=== PATIENT | male | born 1990 | race Caucasian/White ===

== ENCOUNTER 2017-08-12 12:50 | Day surgery (SDC) | payer OTHER ==
[2017-08-12] MEDS ORDERED: OXYMETAZOLINE 30 ML NASAL SPRAY ONE (13:31)
[2017-08-12] MEDS ORDERED: BACITRACIN ZINC 14.2 GM OINTTUBE TP ONE (13:31)
[2017-08-12] MEDS ORDERED: LIDOCAINE 1% 2 ML INJ ID PRN (13:54)
[2017-08-12] MEDS ORDERED: LR 1,000 ML IV ONE (13:54)
[2017-08-12] MEDS ORDERED: OXYMETAZOLINE 30 ML NASAL SPRAY EACHNARE ONE (14:15)
--- NOTE | 2017-08-12 14:24 | PDANEPAE ---
ANE Past Medical History - Cardiovascular History Hx Hypertension: No Hx Arrhythmias: No Hx Chest Pain: No Hx Coronary Artery / Peripheral Vascular Disease: No Hx CHF / Valvular Disease: No Hx Palpitations: No - Pulmonary History Hx COPD: No Hx Asthma/Reactive Airway Disease: No Hx Recent Upper Respiratory Infection: No Hx Oxygen in Use at Home: No Hx Sleep Apnea: No Sleep Apnea Screening Result - Last Documented: Negative - Neurologic History Hx Cerebrovascular Accident: No Hx Seizures: No Hx Dementia: No - Endocrine History Hx Diabetes: No Obesity: no - Renal History Hx Renal Disorders: No - Liver History Hx Hepatic Disorders: No - Neurological & Psychiatric Hx Hx Neurological and Psychiatric Disorders: No - Cancer History Hx Cancer: No - Congenital Disorder History Hx Congenital Disorders: No - GI History Hx Gastrointestinal Disorders: No - Other Health History Other Health History: none - Chronic Pain History Chronic Pain: No - Surgical History Prior Surgeries: na ANE Review of Systems Review of Systems: - Exercise capacity METS (RN): 4 METS ANE Patient History - Allergies Allergies/Adverse Reactions: No Known Allergies Allergy (Verified 08/05/17 11:42) - Home Medications Home medications: home medication list seen and reviewed Home Medications: NK [No Known Home Meds] 12/02/15 [Last Taken Unknown] - NPO status NPO Since - Liquids (Date): 08/12/17 NPO Since - Liquids (Time): 11:00 NPO Since - Solids (Date): 08/11/17 NPO Since - Solids (Time): 21:00 - Anes Hx Anes Hx: no prior problems - Smoking Hx Smoking Status: Never smoked - Family Anes Hx Family Hx Anesthesia Complications: none ANE Labs/Vital Signs - Vital Signs Blood Pressure: 140/92 Heart Rate: 65 Respiratory Rate: 16 O2 Sat (%): 96 Height: 180.34 cm Weight: 95.254 kg ANE Physical Exam - Airway Neck exam: FROM Mallampati Score: Class 2 Mouth exam: normal dental/mouth exam - Pulmonary Pulmonary: no respiratory distress - Cardiovascular Cardiovascular: regular rate and rhythym - ASA Status ASA Status: I ANE Anesthesia Plan Anesthesia Plan: general endotracheal anesthesia
--- NOTE | 2017-08-12 14:30 | PDGENHP ---
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 Symptoms recalcitrant to medical therapy. History Information - Allergies/Home Medication List Allergies/Adverse Reactions: No Known Allergies Allergy (Verified 08/05/17 11:42) Home Medications: NK [No Known Home Meds] 12/02/15 [Last Taken Unknown] I have personally reviewed and updated: family history, medical history, surgical history - Family History Positive for: non-pertinent - Social History Smoking Status: Never smoked Review of Systems Review of Systems: ROS: 2-9 pt reviewed & negative except for what was stated in HPI & below Constitutional: Reports: no symptoms EENMT: Reports: other (Nasal obstruction) Cardiac: Reports: no symptoms Respiratory: Reports: no symptoms Gastrointestinal: Reports: no symptoms Genitourinary: Reports: no symptoms Skin: Reports: no symptoms Neurological: Reports: anxiety Hematologic/Lymphatic: Reports: no symptoms Immunologic/Allergy: Reports: no symptoms Physical Exam Physical Exam: Temp Pulse Resp BP Pulse Ox 36.8 C 65 16 140/92 H 96 08/12/17 13:25 08/12/17 14:24 08/12/17 14:24 08/12/17 14:24 08/12/17 14:24 Constitutional: no apparent distress, appears nourished Ears, Nose, Mouth, Throat: moist mucous membranes, ears appear normal, other ( Nasal obstruction as previously detailed) Respiratory: no respiratory distress Skin: warm, normal color Psychiatric: interacting appropriately Assessment & Plan Assessment: Nasal obstruction as described. Good candidate for scheduled procedures: septoplasty, turbinate reduction, repair of nasal valve stenosis. Plan: As above.
[2017-08-12] MEDS ORDERED: fentaNYL 100 MCG/2 ML INJ ONE ×2 (15:06→17:31)
[2017-08-12] MEDS ORDERED: LIDO/EPI 1% **for epidural** 30 ML SDV ONE (15:06)
[2017-08-12] MEDS ORDERED: PROPOFOL/EMULSION 500 MG/50 ML BOTTLE IV ONE ×2 (15:07→15:51)
[2017-08-12] MEDS ORDERED: LIDOCAINE 2% 5 ML SDV ONE (15:09)
[2017-08-12] MEDS ORDERED: BUPIVACAINE 0.25% 30 ML SDV ONE (15:09)
[2017-08-12] MEDS ORDERED: REMIFENTANIL HCL 1 MG VIAL ONE (15:10)
[2017-08-12] MEDS ORDERED: ROCURONIUM 50 MG/5 ML VIAL ONE (15:13)
[2017-08-12] MEDS ORDERED: DEXAMETHASONE 4 MG/ML VIAL IVP PRN (16:08)
[2017-08-12] MEDS ORDERED: HYDROmorphONE/DILAUDID 1 MG/ML INJ IVP PRN (16:08)
[2017-08-12] MEDS ORDERED: LR 500 ML IV PRN (16:08)
[2017-08-12] MEDS ORDERED: ALBUTEROL 3 ML DEYVIAL IH PRN (16:08)
[2017-08-12] MEDS ORDERED: epHEDrine SULFATE 10 MG/ML SYR IVP PRN (16:08)
[2017-08-12] MEDS ORDERED: ONDANSETRON 4 MG/2 ML VIAL IVP PRN (16:08)
[2017-08-12] MEDS ORDERED: NALOXONE HCL 0.4 MG/ML INJ IVP PRN (16:08)
[2017-08-12] MEDS ORDERED: PHENYLEPHRINE HCL 100 MCG/ML SYR IVP PRN (16:08)
[2017-08-12] MEDS ORDERED: HYDROCODONE/APAP 5/325 TAB PO PRN ×2 (16:08→17:10)
[2017-08-12] MEDS ORDERED: OXYCODONE/APAP 5/325 TAB PO PRN (16:08)
[2017-08-12] MEDS ORDERED: ACETAMINOPHEN 500 MG TAB PO PRN (16:08)
[2017-08-12] MEDS ORDERED: OXYMETAZOLINE 30 ML NASAL SPRAY EACHNARE PRN (17:10)
--- NOTE | 2017-08-12 17:15 | POSTOPPROG ---
Post Op Note Date of Operation: 08/12/17 Surgeon: Raza Flower Anesthesia: Epidural Pre-op Diagnosis: Nasal obstruction Post-op Diagnosis: Nasal obstruction Indication: Nasal obstruction Procedure: Endoscopic septoplasty, trubinate SMR, B/L yeyo grafts Inf/Abcess present in the surg proc area at time of surgery?: No Depth: Deep Incisional (Fascial) EBL: Minimal Complications: none Specimen(s): none
--- NOTE | 2017-08-12 17:22 | POSTANESTH ---
Post Anesthetic Evaluation Cardiovascular Status: Normal, Stable Respiratory Status: Normal, Stable Level of Consciousness/Mental Status: Can Participate in Eval Pain Control: Adequate, Prn Tx Ordered Nausea/Vomiting Control: Adequate, Prn Tx Ordered Complications Possibly Related to Anesthesia: None Noted
[2017-08-12] MEDS: fentaNYL 100 MCG/2 ML INJ IVP PRN ×3 (17:34→18:04)
[2017-08-12 17:40] VITALS: PULSE 85
[2017-08-12 17:49] VITALS: TEMP 98.6
[2017-08-12] MEDS ORDERED: HYDROCODONE/APAP 5/325 TAB ONE (17:51)
[2017-08-12 19:13] VITALS: BP 154/93; RESP 16; O2SAT 87
--- NOTE | 2017-09-06 18:32 | GOP ---
[f rep st] OPERATIVE REPORT DATE OF OPERATION: 08/12/2017 SURGEON: Raza Flower MD ANESTHESIA: General. PREOPERATIVE DIAGNOSIS: Nasal obstruction. POSTOPERATIVE DIAGNOSIS: Nasal obstruction. PROCEDURE PERFORMED: Endoscopic septoplasty, bilateral inferior turbinate submucosal resection, and bilateral endoscopic yeyo grafts. FINDINGS: Bilateral obstructive inferior turbinate hypertrophy, obstructive nasal septal deviation, and nasal valve collapse. SPECIMENS: None. ESTIMATED BLOOD LOSS: Minimal. INDICATIONS: Patient was seen in the outpatient clinic and was found to have a history of significan t nasal obstruction secondary to septal deviation, inferior turbinate reduction, and nasal valve peggy apse. Given his history and findings, he was determined to be an appropriate candidate for the above -stated procedures. The risks, benefits, alternatives to the procedures were explained at length to the patient, who stated he understood and wished to go forward with the procedures. DESCRIPTION OF PROCEDURE: Patient was brought to the operating room by Anesthesiology and placed on the operating table. Once the appropriate level of anesthesia was achieved, the bilateral columella, intranasal ala, septum, and inferior turbinates were injected with 1% lidocaine with 1:100,000 epine phrine. Afrin-soaked pledgets were placed bilaterally. The patient was then prepped and draped in t he usual fashion. Afrin pledgets were then removed. The remainder of the procedure was performed un isidro 0-degree endoscopic visualization. A needle-tip Bovie electrocautery was used to create a left-sided hemitransfixion incision. The sept al flap was elevated in a submucoperichondrial and submucoperiosteal plane using a Shital elevator an d suction Shelby. Once this was elevated appropriately, a vertical incision was created at the bony-c artilaginous junction with a [place] elevator. The deviated portion of quadrangular cartilage was inc ised with a D knife. Care was taken to leave at least 1 cm of dorsal and caudal septal support. The incised cartilage was then elevated off the contralateral mucosa with the Shital elevator. This was delivered and saved in saline for grafting. The contralateral mucosa was elevated off the bony sept um with the Shital elevator. The superior portion of the bony septum was cut with a straight Plascencia sc issors. A Birgit was then used to remove the deviated portions of bony septum. There was minimal bleeding within the surgical bed. The septal flap was laid back in place, and the septum was found to be straight on endoscopic visualization bilaterally. The left-sided hemitransfixion incision was closed with 2 interrupted 4-0 chromic sutures. Bilateral inferior turbinates were again injected with 3 mL each of 1% lidocaine with 1:100,000 epine phrine. A turbinate microdebrider was then used to complete submucosal resection in the usual fashio n at the right and then at the left. There was noted to be good soft tissue reduction with each of t hese at the right and left. Once this was completed, the turbinates were first infractured and then outfractured using a Shelby elevator. There was good lateralization with this technique bilaterally. At this point, there was good visualization from the vestibule through to the nasopharynx bilaterall y. The nasal ala were inspected for their weakest points and site of collapse. These were marked as suc h with markings at the piriform aperture externally. The nasal septal cartilage graft was cut into 4 mm x 1.5 cm grafts. At the internal portion of the right nasal ala, where it intersects with the in ternal nasal valve, a 15 blade was used to create an incision. Submucoperichondrial dissection was c ompleted within the soft tissue running laterally to the lateral portion of the piriform sinus on tosha t side. This entire procedure was repeated at the left. A curved iris scissors was used to complete the dissection. A superior pocket was made bilaterally. The cartilage grafts were then placed insi de the pockets, and the incision was sutured closed with 4-0 chromic sutures. There was good palpati on of the cartilage grafts at the lateral aspect of the piriform aperture, and there was markedly les s collapse on palpation. Bilateral nasal cavities were inspected for bleeding. Only minimal ooze wa s found. Bacitracin-coated Singh splints were placed in bilateral nasal cavities and sutured in plac e with a single 3-0 Prolene suture. The patient tolerated the procedure well and was extubated in th e operating room prior to being transferred in good condition to the postanesthesia care unit. COMPLICATIONS: None. /[id number]/MODL
== END 2017-08-12 19:11 | disposition home or self-care (01) ==
LOC: FSGY 12:50
PROVIDERS: ATTEND Otolaryngology
PROC: 09R Ear, Nose, Sinus, Replacement (ICD-10-PCS; principal; 2017-08-12 14:30)
PROC: 09QM0ZZ Repair Nasal Septum, Open Approach (ICD-10-PCS; principal; 2017-08-12 14:30)
DX: J34.89 Other specified disorders of nose and nasal sinuses (principal)
CPT/HCPCS: J0171; J2704; J3010